=== PATIENT | female | born 1960 | race Caucasian/White ===

== ENCOUNTER 2017-05-20 13:31 | Emergency (ER) | payer BC ==
[2017-05-20 13:55] VITALS: BP 137/89
--- NOTE | 2017-05-20 14:37 | RAD ---
Indication: Left tibia pain. 4 views of the left knee demonstrates no fracture. No other bone or joint abnormality is noted. No joint effusion is noted. IMPRESSION: Unremarkable left knee.
--- NOTE | 2017-05-20 15:28 | UC ---
Knee Pain HPI - HPI Summary HPI Summary: LATERAL LEFT KNEE PAIN WHILE WALKING, CONSISTENT PROBLEM FOR SEVERAL YEARS. FEELS LIKE BONES 'POP IN AND OUT'. WHILE WALKING, FELT KNEE POP, THIS TIME, PAIN CONTINUES. - History of Current Complaint Chief Complaint: UCLowerExtremity Stated Complaint: KNEE COMPLAINT Time Seen by Provider: 05/20/17 13:59 Hx Obtained From: Patient Onset/Duration: Sudden Onset, Lasting Hours, Still Present Severity Initially: Moderate Severity Currently: Moderate Pain Intensity: 6 Pain Scale Used: 0-10 Numeric Character: Dull, Aching Aggravating Factor(s): Movement Associated Signs And Symptoms: Positive: Negative Able to Bear Weight: Yes - Risk Factors Septic Arthritis Risk Factor: Negative Gout Risk Factor: Negative - Allergies/Home Medications Allergies/Adverse Reactions: Allergies Allergy/AdvReac Type Severity Reaction Status Date / Time No Known Allergies Allergy Verified 05/20/17 13:55 Home Medications: Home Medications NK [No Home Medications Reported] 05/20/17 [History Confirmed 05/20/17] PMH/Surg Hx/FS Hx/Imm Hx Previously Healthy: Yes - Surgical History Surgical History: Yes Surgery Procedure, Year, and Place: X4. BREAST IMPLANTS 2008. COSMETIC SURGERY FOR HER EYE LIDS- EXTRA SKIN REMOVED - Family History Known Family History: Negative: Other - NO JOINT LAXITY - Social History Occupation: Employed Full-time Lives: With Family Alcohol Use: Occasionally Substance Use Type: None Smoking Status (MU): Never Smoked Tobacco Review of Systems Constitutional: Negative Skin: Negative Eyes: Negative ENT: Negative Respiratory: Negative Cardiovascular: Negative Gastrointestinal: Negative Genitourinary: Negative Motor: Negative Neurovascular: Negative Musculoskeletal: Arthralgia, Myalgia Neurological: Negative Psychological: Negative All Other Systems Reviewed And Are Negative: Yes Physical Exam Triage Information Reviewed: Yes Appearance: Well-Appearing, No Pain Distress, Well-Nourished Vital Signs: Initial Vital Signs Temp 98.6 F 05/20/17 13:52 Pulse 85 05/20/17 13:52 Resp 18 05/20/17 13:52 BP 137/89 05/20/17 13:52 Pulse Ox 98 05/20/17 13:52 Vital Signs Reviewed: Yes Eye Exam: Normal ENT Exam: Normal Dental Exam: Normal Neck exam: Normal Neck: Positive: Supple, Nontender, No Lymphadenopathy Respiratory Exam: Normal Respiratory: Positive: Chest non-tender, Lungs clear, Normal breath sounds Cardiovascular Exam: Normal Cardiovascular: Positive: RRR, No Murmur Abdominal Exam: Normal Musculoskeletal: Positive: Strength Intact, ROM Intact, No Edema, Other: - LATERAL KNEE TENDERNESS Neurological Exam: Normal Psychological Exam: Normal Skin Exam: Normal Knee Pain Course/Dx - Differential Dx/Diagnosis Differential Diagnosis/HQI/PQRI: Internal Derangement Of Knee, Sprain, Strain Provider Diagnoses: LEFT KNEE SPRAIN Discharge - Discharge Plan Condition: Stable Disposition: HOME Patient Education Materials: Knee Sprain (ED), Knee Pain (ED) Referrals: Debbi Cole MD [Medical Doctor] - Margaret Maya MD [Primary Care Provider] - Jean Claude Fernandez MD [Medical Doctor] -
== END 2017-05-20 15:19 | disposition home or self-care (01) ==
LOC: UCEAST 13:31
DX: S83.92XA Sprain of unspecified site of left knee, initial encounter (principal); X58.XXXA Exposure to other specified factors, initial encounter
CPT/HCPCS: 99213; G0463

== ENCOUNTER 2017-08-24 12:20 | Emergency (ER) | payer SELFPAY ==
[2017-08-24 12:44] VITALS: BP 138/84
[2017-08-24] MEDS ORDERED: Fluorescein Sodium TOPICAL* 1 MG TEST OPHTHALMIC ONE (13:35)
[2017-08-24] MEDS ORDERED: Tetracaine 0.5% OPTH.SOL 4 ML* 1 DROP BTL LEFT EYE ONE (13:35)
[2017-08-24] MEDS ORDERED: BSS OPTH.SOL* BTL ONE (13:42)
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
== END 2017-08-24 14:02 | disposition home or self-care (01) ==
LOC: LABEAST 12:20 → UCEAST 12:20 → LABEAST 14:02
DX: H10.32 Unspecified acute conjunctivitis, left eye (principal); Z77.21 Contact with and (suspected) exposure to potentially hazardous body fluids; R03.0 Elevated blood-pressure reading, without diagnosis of hypertension; Z11.4 Encounter for screening for human immunodeficiency virus [HIV]; E07.9 Disorder of thyroid, unspecified; H40.9 Unspecified glaucoma
CPT/HCPCS: 36415; 80074; 86703; 99212; A9270-GY; G0463

== ENCOUNTER 2020-02-07 16:17 | Emergency (ER) | payer BC ==
[2020-02-07 16:26] VITALS: BP 154/103
== END 2020-02-07 18:05 | disposition left against medical advice (07) ==
LOC: ED 16:17
DX: R42 Dizziness and giddiness (principal); Z53.21 Procedure and treatment not carried out due to patient leaving prior to being seen by health care provider
CPT/HCPCS: 99282